=== PATIENT | male | born 1985 | race Caucasian/White ===

== ENCOUNTER 2018-05-30 12:23 | Emergency (ER) | payer OTHER ==
[~2018-05-30] VITALS: Ht 177.8 cm; Wt 79.4 kg
[~2018-05-30 12:23] MED LIST: ACETAMINOPHEN-1 EAC1 PO; ACETAMINOPHEN325 M1 PO; ADVIL LIQUI-GE200 MG PO; AMOXICILLIN875 MG PO; BUSPIRONE HCL10 MG PO; DAYPRO600 MG PO; HYDROCODON-ACE1 EAC7 PO; IBUPROFEN 800800 MG PO; LEVAQUIN 750 M750 MG PO; MEDROLDOSEPACK; NAPROSYN250 MG PO; NOHOMEMEDICATIONS; NORCO 5-325 TA1 EAC1 PO; NORCO 5-325 TA1 EACH PO; ONDANSETRON HCL4 M2 PO; PREDNISONE 20 M20 M1 PO; PREDNISONE50 MG PO; PROAIR HFA8.5 GM IH; ROBAXIN 750 MG750 M1 PO; ROBAXIN 750 MG750 MG PO; ROBAXIN500 MG PO; TESSALON PERLE100 MG PO; TRAMADOL 50 MG50 MG PO; VENTOLIN HFA 1818 GM INH; VENTOLIN HFA INH8 GM IH; WELLBUTRIN SR150 M1 PO; ZANTAC 150MG T150 MG PO
[2018-05-30] MEDS ORDERED: IBUPROFEN 800800 M1 PO (14:41)
[2018-05-30] MEDS ORDERED: ACETAMINOPHEN-1 EAC1 PO (14:41)
[2018-05-30 14:59] VITALS: BP 157/103
== END 2018-05-30 15:00 | disposition home or self-care (01) ==
LOC: M.ERS 12:23
DX: M79.644 Pain in right finger(s) (principal); M79.641 Pain in right hand; J45.909 Unspecified asthma, uncomplicated; G89.29 Other chronic pain; M54.9 Dorsalgia, unspecified; Z77.22 Contact with and (suspected) exposure to environmental tobacco smoke (acute) (chronic)

== ENCOUNTER 2019-06-18 01:51 | Emergency (ER) | payer OTHER ==
[~2019-06-18] VITALS: Ht 177.8 cm; Wt 81.7 kg
[~2019-06-18 01:51] MED LIST changes: +IBUPROFEN 800800 M1 PO
[2019-06-18] MEDS ORDERED: ACETAMINOPHEN500 MG PO (01:56)
[2019-06-18] MEDS ORDERED: OMEPRAZOLE40 MG PO (01:57)
[2019-06-18 02:27] LABS: ABSOLUTE EOSINOPHILS 0.3 thou/uL (0.0-0.7); ABSOLUTE LYMPHOCYTES 2.7 thou/uL (0.8-5.3); ABSOLUTE MONOCYTES 0.4 thou/uL (0.0-1.2); ABSOLUTE NEUTROPHILS 2.6 thou/uL (1.6-8.1); BASOPHILS 0.8 %; EOSINOPHILS 5.5 %; HEMATOCRIT 46.4 % (42.0-52.0); HEMOGLOBIN 16.4 gm/dL (14.0-18.0); LYMPHOCYTES 44.5 %; MCH 34.4 pg (26.0-34.0); MCHC 35.4 g/dL (28.0-37.0); MONOCYTES 6.4 %; MPV 7.7 fl. (7.2-11.1); NUCLEATED RBCS 0 /100WBC; PLATELET COUNT* 190 thou/uL (150-400); POLYS 42.8 %; RBC 4.78 mil/uL (4.50-6.00); RDW-CV 12.7 % (10.5-14.5); WBC 6.1 thou/uL (4.0-11.0)
[2019-06-18 02:34] LABS: CALCIUM 8.5 mg/dL (8.5-10.1); POTASSIUM 3.8 mmol/L (3.5-5.1)
[2019-06-18 02:35] LABS: APTT 26.9 Seconds (25.0-31.3); PROTIME 10.1 Seconds (9.20-11.50)
[2019-06-18 02:41] LABS: ALBUMIN 3.8 g/dL (3.4-5.0); TOTAL BILIRUBIN 0.5 mg/dL (<0.1-1.0); TOTAL PROTEIN 7.3 g/dL (6.4-8.2)
[2019-06-18 04:10] VITALS: BP 101/69
--- NOTE | 2019-06-18 09:46 | EKG ---
[place] [address] ELECTROCARDIOGRAM REPORT Name: RANDOLPH MELCHOR Room: [facility]#: [id number] Admission: 06/18/19 Attend Phys: Discharge: 06/18/19 Date of : 87 Date of Service: 06/18/19213 Report #: [id number] THIS REPORT FOR: //name// [facility] ED Test Date: 2019-06-18 Test Time: 02:14:31 Pat Name: RANDOLPH MELCHOR Department: Room: Gender: Ldr Rn: [place] : 1985 Requested By: Cruz Carrera Order Number: [id number] MD: Brandon Gill Measurements Intervals [place] Rate: 81 P: 20 MO: 133 QRS: 8 QRSD: 94 T: 20 QT: 360 QTc: 418 Interpretive Statements Sinus rhythm Compared to ECG 12/08/2015 22:36:54 No significant changes Electronically Signed On 06-18-2019 9:45:09 [employer] by Brandon Gill [email or web address] <ELECTRONICALLY SIGNED> By: Brandon Gill MD, [facility] 06/18/19 0945 3 3 Brandon Gill MD, FACC /EPI
== END 2019-06-18 04:15 | disposition home or self-care (01) ==
LOC: M.ERS 01:51
PROVIDERS: Emergency Medicine Emergency Medical Services
DX: R20.0 Anesthesia of skin (principal); Z77.22 Contact with and (suspected) exposure to environmental tobacco smoke (acute) (chronic); J45.909 Unspecified asthma, uncomplicated; G89.29 Other chronic pain